=== PATIENT | male | born 1995 | race Caucasian/White ===

== ENCOUNTER 2022-10-28 05:15 | Emergency (ER) | payer OTHER ==
[2022-10-28 05:23] VITALS: BP 172/75; PULSE 63; RESP 20; TEMP 97.6
[2022-10-28] MEDS ORDERED: IBUPROFEN 400 MG TAB PO STA (05:39)
--- NOTE | 2022-10-28 05:39 | ED ---
Lower Extremity Injury HPI - General Chief Complaint: Extremity Injury, Lower Stated Complaint: Fall -Hurt Ankle Time Seen by Provider: 10/28/22 05:38 Source: patient Mode of arrival: wheelchair Limitations: physical limitation - History of Present Illness Initial Comments: This patient is 27-year-old man who presents evaluation of left ankle pain. The patient states she had fallen from a roof approximately 10-12 feet and this was approximately one hour prior to being seen. He indicates pain at the medial aspect of the left calcaneus. The patient denies any injury in to the knee. Denies numbness. No previous injury MD Complaint: ankle injury, foot injury Onset/Timin -: hour(s) Injury: Ankle: Left, Foot: Left Type of Injury: other (Fall injury) Place: work Severity: severe Improves With: nothing Worsens With: weight bearing Context: fall Associated Symptoms: snap/pop sensation - Related Data Previous Rx's Medication Instructions Recorded HYDROcodone/APAP 5-325MG [[place] 1 tab PO Q4HR PRN 3 Days #18 tab 10/28/22 5-325] Allergies Allergy/AdvReac Type Severity Reaction Status Date / Time No Known Allergies Allergy Verified 10/28/22 05:20 Review of Systems ROS Statement: Those systems with pertinent positive or pertinent negative responses have been documented in the HPI. ROS Other: All systems not noted in ROS Statement are negative. Cardiovascular: Denies: chest pain Gastrointestinal: Denies: abdominal pain Musculoskeletal: Denies: back pain Skin: Denies: lesions Neurological: Denies: headache, weakness, numbness Past Medical History Past Medical History: No Reported History History of Any Multi-Drug Resistant Organisms: None Reported Past Surgical History: No Surgical Hx Reported Past Psychological History: No Psychological Hx Reported Smoking Status: Current every day smoker Past Alcohol Use History: Rare Past Drug Use History: Marijuana General Exam Limitations: physical limitation General appearance: alert, in no apparent distress Left Upper Leg exam: Present: normal inspection, full ROM. Absent: tenderness, swelling Knee exam: Present: normal inspection, full ROM. Absent: tenderness, swelling Lower Leg exam: Present: normal inspection, full ROM. Absent: tenderness, swelling Ankle exam: Present: normal inspection, tenderness. Absent: full ROM Foot/Toe exam: Present: tenderness, swelling, calcaneal tenderness. Absent: puncture wound, tenderness at base of 5th metatarsal Neurovascular tendon exam: Present: no vascular compromise. Absent: abnormal cap refill, motor deficit, sensory deficit, tendon deficit Skin exam: Present: warm, dry, intact, normal color. Absent: rash Course Vital Signs 10/28/22 05:20 Temperature 97.6 F Pulse Rate 63 Respiratory 20 Rate Blood Pressure 172/75 O2 Sat by Pulse 98 Oximetry Medical Decision Making - Medical Decision Making This patient is a 27-year-old man found to have calcaneus fracture. Case is discussed with Dr. Khan, orthopedic surgeon on-call. He reviewed the films and then gave directions for further treatment. The patient is placed in splint. We discussed appropriate further care and follow-up. We discussed return parameters. The patient understands he is to follow-up with Dr. Cantrell and will call to schedule that. He will return here if there is any difficulty. The patient had foot x-rays which I interpreted as showing acute calcaneus fracture Was pt. sent in by a medical professional or institution (, PA, MANAGER OF MANUFACTURING, urgent care, hospital, or [facility]...) When possible be specific @ -[No] Did you speak to anyone other than the patient for history (EMS, parent, family, police, friend...)? What history was obtained from this source @ -[No] Did you review nursing and triage notes (agree or disagree)? Why? @ -[I reviewed and agree with nursing and triage notes] Were old charts reviewed (outside hosp., previous admission, EMS record, old EKG, old radiological studies, urgent care reports/EKG's, [facility] records)? Report findings @ -[No old charts were reviewed] Differential Diagnosis (chest pain, altered mental status, abdominal pain women, abdominal pain men, vaginal bleeding, weakness, fever, dyspnea, syncope, headache, dizziness, GI bleed, back pain, seizure, CVA, palpatations, mental health, musculoskeletal)? @ -[Differential Musculoskeletal Muscular strain, contusion, ligament sprain, fracture, arthritis, septic arthritis, bursitis, cellulitis, muscle spasm, nerve compression, DVT, arterial occlusion, herpes zoster, electrolyte abnormality, tumor.... This is not meant to be in all inclusive list EKG interpreted by me (3pts min.). @ -[ X-rays interpreted by me (1pt min.). @ -[As above CT interpreted by me (1pt min.). @ -[None done] U/S interpreted by me (1pt. min.). @ -[None done] What testing was considered but not performed or refused? (CT, X-rays, U/S, labs)? Why? @ -[None] What meds were considered but not given or refused? Why? @ -[None] Did you discuss the management of the patient with other professionals (professionals i.e. , PA, MANAGER OF MANUFACTURING, lab, RT, psych nurse, clinical social worker, manager customs, teacher, licensed loan officer assistant, rifle case repairer)? Give summary @ -[Case discussed with orthopedic surgeon Was smoking cessation discussed for >3mins.? @ -[No] Was critical care preformed (if so, how long)? @ -[No] Were there social determinants of health that impacted care today? How? (Homelessness, low income, unemployed, alcoholism, drug addiction, transportation, low edu. Level, literacy, decrease access to med. care, long term, rehab)? @ -[No] Was there de-escalation of care discussed even if they declined (Discuss DNR or withdrawal of care, Hospice)? DNR status @ -[No] What co-morbidities impacted this encounter? (DM, HTN, Smoking, COPD, CAD, Cancer, CVA, ARF, Chemo, Hep., AIDS, mental health diagnosis, sleep apnea, morbid obesity)? @ -[None] Was patient admitted / discharged? Hospital course, mention meds given and route, prescriptions, significant lab abnormalities, going to OR and other pertinent info. @ -[Discharged Undiagnosed new problem with uncertain prognosis? @ -[No] Drug Therapy requiring intensive monitoring for toxicity (Heparin, Nitro, Insulin, Cardizem)? @ -[No] Were any procedures done? @ -[No] Diagnosis/symptom? @ -[Acute calcaneus fracture Acute, or Chronic, or Acute on Chronic? @ -[default] Uncomplicated (without systemic symptoms) or Complicated (systemic symptoms)? @ -[Uncomplicated Side effects of treatment? @ -[No] Exacerbation, Progression, or Severe Exacerbation? @ -[No] Poses a threat to life or bodily function? How? (Chest pain, [place], [place], pneumonia, PE, COPD, DKA, ARF, appy, cholecystitis, CVA, Diverticulitis, Homicidal, Suicidal, threat to staff... and all critical care pts) @ -[No] Disposition Clinical Impression: Calcaneal fracture Disposition: HOME SELF-CARE Condition: Good Instructions (If sedation given, give patient instructions): Calcaneal Fracture (ED) Prescriptions: HYDROcodone/APAP 5-325MG [[place] 5-325] 1 tab PO Q4HR PRN 3 Days #18 tab PRN Reason: Pain Is patient prescribed a controlled substance at d/c from ED?: Yes Referrals: None,Stated [Primary Care Provider] - 1-2 days Edy Cantrell DO [REFERRING] - 1-2 days
--- NOTE | 2022-10-28 06:08 | XR ---
EXAMINATION TYPE: XR ankle complete LT, XR calcaneus 2V LT DATE OF EXAM: 10/28/2022 CLINICAL HISTORY: fall injury pain after fall injury. TECHNIQUE: Frontal, lateral and oblique images of the left ankle are obtained. 2 views left calcaneu s. COMPARISON: None. FINDINGS: There is acute comminuted intra-articular fracture extending from the posterior inferior ma rgin of the calcaneus through the subtalar joint with slight step-off. There is a 1.1 cm tiny linear shaped ossific fragment posteriorly. Remainder of the ankle shows no additional acute displaced fracture. The ankle mortise appears withi n normal limits. The overlying soft tissue appears unremarkable. IMPRESSION: There is an acute comminuted displaced intra-articular calcaneal fracture.
[2022-10-28] MEDS ORDERED: HYDROcodone/APAP 5-325MG 1 EACH TAB PO STA (07:00)
== END 2022-10-28 07:21 | disposition home or self-care (01) ==
LOC: EC 05:15
DX: S92.002A Unspecified fracture of left calcaneus, initial encounter for closed fracture (principal); F17.200 Nicotine dependence, unspecified, uncomplicated; F12.90 Cannabis use, unspecified, uncomplicated; W13.2XXA Fall from, out of or through roof, initial encounter; Y99.0 Civilian activity done for income or pay
CPT/HCPCS: 29515; 99284